=== PATIENT | male | born 2000 | race African-American/Black ===

== ENCOUNTER 2021-06-24 17:42 | Emergency (ER) | payer BC ==
[~2021-06-24] VITALS: Ht 188 cm; Wt 86.2 kg
[2021-06-24 18:05] VITALS: BP_SYST 151
--- NOTE | 2021-06-24 18:05 | NUR ---
Pt triaged and placed in waiting room.
--- NOTE | 2021-06-24 20:25 | NUR ---
CALLED PATIENT TO BE SEEN. NO ANSWER WHEN CALLED. WILL TRY AGAIN.
--- NOTE | 2021-06-24 20:25 | NUR ---
PATIENT LEFT WITHOUT BEING SEEN.
== END 2021-06-24 20:25 | disposition left against medical advice (07) ==
LOC: SED 17:42
DX: K61.1 Rectal abscess (principal); Z53.21 Procedure and treatment not carried out due to patient leaving prior to being seen by health care provider